=== PATIENT | male | born 1930 | race Caucasian/White ===

== ENCOUNTER 2019-12-26 18:40 | Emergency (ER) | payer MEDICARE, BC ==
[~2019-12-26] VITALS: Ht 188 cm; Wt 86.2 kg
[~2019-12-26 18:40] MED LIST: ASPIRIN EC81 MG; BAL B-501 EACH PO; CENTRUM SILVER1 EAC6 PO; LUTEIN20 MG PO; OMEGA 3 1,0001 EACH PO; PLAVIX75 MG PO; VITAMIN C500 M1 PO; VITAMIN D1000 UNIT PO
== END 2019-12-26 20:30 | disposition home or self-care (01) ==
LOC: ED 18:40
DX: S41.112A Laceration without foreign body of left upper arm, initial encounter (principal); E78.5 Hyperlipidemia, unspecified; N40.0 Benign prostatic hyperplasia without lower urinary tract symptoms; Z79.02 Long term (current) use of antithrombotics/antiplatelets; Z79.82 Long term (current) use of aspirin; Z79.899 Other long term (current) drug therapy; Z88.8 Allergy status to other drugs, medicaments and biological substances; W19.XXXA Unspecified fall, initial encounter
CPT/HCPCS: 71046; 72170; 99284-25